=== PATIENT | female | born 1955 | race Caucasian/White ===

== ENCOUNTER 2018-02-23 09:12 | Observation (INO) | payer MEDICARE ==
[~2018-02-23] VITALS: Ht 167.6 cm; Wt 111.0 kg
[2018-02-23] VITALS (10 sets, daily range): BP systolic 141–183; BP diastolic 75–126; PULSE 63–80; RESP 12–20; TEMP 97.9–98.5; O2SAT 95–98
[2018-02-23] MEDS ORDERED: CITA20TA4 PO (09:44)
[2018-02-23] MEDS ORDERED: PANT40TA3 PO (09:44)
[2018-02-23] MEDS ORDERED: TRAZ50TA12 PO (09:44)
[2018-02-23] MEDS ORDERED: TRAM50TA PO (09:44)
[2018-02-23] MEDS ORDERED: SODIUM CHLORIDE 0.9% FLUSH 10 ML FLUSH IVF PRN (09:45)
[2018-02-23] MEDS ORDERED: ASPIRIN 325 MG TAB PO ONE (09:45)
[2018-02-23] MEDS ORDERED: NITROGLYCERIN 0.4 MG SL 25 TABS/BTL SL ONE (09:45)
--- NOTE | 2018-02-23 09:49 | PD ---
HPI Chief Complaint: Chest Pain Time Seen by Provider: 09:37 Travel History International Travel<30 days: No Contact w/Intl Traveler<30days: No Traveled to known affect area: No History of Present Illness HPI Patient presents to the emergency department with chest pain that started this morning at 9 AM. Pain is described as being epigastric and sternal with radiation to her back, left ear, and right jaw. States pain is currently 2 out of 10, intermittent, and 4 minutes in duration, alleviated with rest, no aggravating factors. She is also reporting nausea but no vomiting. States that she has anxiety attacks has similar symptoms but they do not cause pain this bad in his lung. He denies fever, chills, shortness of breath, vomiting, edema, diarrhea, recent travel. PFSH Past Medical History Depression: Yes Cardiovascular Problems: Yes GERD: Yes Insomnia: Yes ?: Not Past Surgical History Gynecologic Surgery: Yes Hysterectomy: Yes Other Surgery: Yes (neck surgery ) Family History Family Myocardial Infarction: Yes Social History Alcohol Use: No Tobacco Use: No Substance Use: No Allergies-Medications (Allergen,Severity, Reaction): Coded Allergies: No Known Allergies (Unverified , 02/23/18) Reported Meds & Prescriptions Reported Meds & Active Scripts Active Reported Trazodone (Trazodone HCl) 50 Mg Tab 75 Mg PO HS Tramadol (Tramadol HCl) 50 Mg Tab 50 Mg PO Q6H PRN Citalopram (Citalopram Hydrobromide) 20 Mg Tab 20 Mg PO DAILY Pantoprazole (Pantoprazole Sodium) 40 Mg Tab 40 Mg PO DAILY Review of Systems Except as stated in HPI: all other systems reviewed are Neg Physical Exam Narrative GENERAL: No acute distress. SKIN: Focused skin assessment warm/dry. HEAD: Atraumatic. Normocephalic. EYES: Pupils equal and round. No scleral icterus. No injection or drainage. ENT: No nasal bleeding or discharge. Mucous membranes pink and moist. NECK: Trachea midline. No JVD. CARDIOVASCULAR: Regular rate and rhythm. No murmur appreciated. RESPIRATORY: No accessory muscle use. Clear to auscultation. Breath sounds equal bilaterally. GASTROINTESTINAL: Abdomen soft, epigastric tender, nondistended. Hepatic and splenic margins not palpable. MUSCULOSKELETAL: No obvious deformities. No clubbing. No cyanosis. No edema. NEUROLOGICAL: Awake and alert. No obvious cranial nerve deficits. Motor grossly within normal limits. Normal speech. PSYCHIATRIC: Appropriate mood and affect; insight and judgment normal. Data Data Last Documented VS Vital Signs Date Time Temp Pulse Resp B/P (MAP) Pulse Ox O2 Delivery O2 Flow Rate FiO2 02/23/18 10:06 76 12 178/75 (109) 95 02/23/18 09:54 Room Air 02/23/18 09:19 97.9 Orders Orders Electrocardiogram (02/23/18 09:44) B-Type Natriuretic Peptide (02/23/18 09:44) Ckmb (Isoenzyme) Profile (02/23/18 09:44) Complete Blood Count With Diff (02/23/18 09:44) Comprehensive Metabolic Panel (02/23/18 09:44) Magnesium (Mg) (02/23/18 09:44) Prothrombin Time / Inr (Pt) (02/23/18 09:44) Act Partial Throm Time (Ptt) (02/23/18 09:44) Troponin I (02/23/18 09:44) Lipase (02/23/18 09:44) Chest, Single Ap (02/23/18 09:44) Ecg Monitoring (02/23/18 09:44) Iv Access Insert/Monitor (02/23/18 09:44) Oximetry (02/23/18 09:44) Aspirin (Aspirin) (02/23/18 09:45) Sodium Chloride 0.9% Flush (Ns Flush) (02/23/18 09:45) Nitroglycerin Sl (Nitrostat Sl) (02/23/18 09:45) CKMB (02/23/18 09:35) CKMB% (02/23/18 09:35) Labs Laboratory Tests Test 02/23/18 09:35 White Blood Count 6.7 TH/MM3 Red Blood Count 4.22 MIL/MM3 Hemoglobin 13.7 GM/DL Hematocrit 41.2 % Mean Corpuscular Volume 97.7 FL Mean Corpuscular Hemoglobin 32.4 PG Mean Corpuscular Hemoglobin Concent 33.1 % Red Cell Distribution Width 13.7 % Platelet Count 234 TH/MM3 Mean Platelet Volume 7.6 FL Neutrophils (%) (Auto) 56.1 % Lymphocytes (%) (Auto) 27.7 % Monocytes (%) (Auto) 12.5 % Eosinophils (%) (Auto) 2.7 % Basophils (%) (Auto) 1.0 % Neutrophils # (Auto) 3.7 TH/MM3 Lymphocytes # (Auto) 1.8 TH/MM3 Monocytes # (Auto) 0.8 TH/MM3 Eosinophils # (Auto) 0.2 TH/MM3 Basophils # (Auto) 0.1 TH/MM3 CBC Comment DIFF FINAL Differential Comment Prothrombin Time 10.1 SEC Prothromb Time International Ratio 1.0 RATIO Activated Partial Thromboplast Time 26.3 SEC Blood Urea Nitrogen 12 MG/DL Creatinine 0.68 MG/DL Random Glucose 92 MG/DL Total Protein 7.1 GM/DL Albumin 3.5 GM/DL Calcium Level 8.7 MG/DL Magnesium Level 2.2 MG/DL Alkaline Phosphatase 68 U/L Aspartate Amino Transf (AST/SGOT) 19 U/L Alanine Aminotransferase (ALT/SGPT) 22 U/L Total Bilirubin 0.3 MG/DL Sodium Level 140 MEQ/L Potassium Level 4.2 MEQ/L Chloride Level 107 MEQ/L Carbon Dioxide Level 24.8 MEQ/L Anion Gap 8 MEQ/L Estimat Glomerular Filtration Rate 88 ML/MIN Total Creatine Kinase 114 U/L Creatine Kinase MB 1.0 NG/ML Troponin I LESS THAN 0.02 NG/ML B-Type Natriuretic Peptide 85 PG/ML Lipase 129 U/L MDM Medical Decision Making Medical Screen Exam Complete: Yes Emergency Medical Condition: Yes Interpretation(s) ECG: Sinus rhythm, rate 76, Q-wave in lead I and aVL, T-wave inversion in lead III and aVF, QTc 400 Labs: Within normal limits Last Impressions Chest X-Ray 02/23/18 0944 Signed Impressions: CONCLUSION: No acute cardiopulmonary findings. Differential Diagnosis ACS, PE, chondritis, pancreatitis, dissection, ulcer disease Narrative Course Patient presents to the emergency department complaining of chest pain. Placed on bus driver/monitor, IV access obtained, and EKG/chest x-ray/labs ordered patient also given aspirin 325 mg p.o. and 1 nitroglycerin 0.4 mg SL. 1131: Patient without chest pain. Pressure 143/75. Patient will be admitted to chest pain center. Diagnosis Primary Impression: Chest pain Qualified Codes: R07.9 - Chest pain, unspecified Admitting Information Admitting Physician Requests: Observation Condition: Stable Penelope Ni MD Feb 23, 2018 09:49
[2018-02-23 10:17] LABS: AUTOMATED NEUTROPHIL # 3.7 TH/MM3 (1.8-7.7); BASOPHIL # 0.1 TH/MM3 (0-0.2); EOSINOPHIL # 0.2 TH/MM3 (0-0.4); EOSINOPHIL % 2.7 % (0.0-4.0); HEMATOCRIT 41.2 % (35.0-46.0); HEMOGLOBIN 13.7 GM/DL (11.6-15.3); LYMPH % 27.7 % (9.0-44.0); LYMPHOCYTE # 1.8 TH/MM3 (1.0-4.8); MEAN CELL VOLUME 97.7 FL (80.0-100.0); MEAN CORPUSCULAR HEMOGLOBIN 32.4 PG (27.0-34.0); MEAN CORPUSCULAR HGB CONC 33.1 % (32.0-36.0); MEAN PLATELET VOLUME 7.6 FL (7.0-11.0); MONO % 12.5 % (0.0-8.0); MONOCYTE # 0.8 TH/MM3 (0-0.9); NEUT % 56.1 % (16.0-70.0); PLATELET COUNT 234 TH/MM3 (150-450); RED BLOOD COUNT 4.22 MIL/MM3 (4.00-5.30); RED CELL DISTRIBUTION WIDTH 13.7 % (11.6-17.2); WHITE BLOOD COUNT 6.7 TH/MM3 (4.0-11.0)
[2018-02-23 10:22] LABS: PROTHROMBIN TIME - PATIENT 10.1 SEC (9.8-11.6)
[2018-02-23 10:29] LABS: ALBUMIN 3.5 GM/DL (3.4-5.0); AST (GOT) 19 U/L (15-37); BICARBONATE 24.8 MEQ/L (21.0-32.0); BLOOD UREA NITROGEN 12 MG/DL (7-18); CALCIUM 8.7 MG/DL (8.5-10.1); CHLORIDE 107 MEQ/L (98-107); CREATININE 0.68 MG/DL (0.50-1.00); GLOMERULAR FILTRATION RATE 88 ML/MIN (>89); GLUCOSE,RANDOM 92 MG/DL (74-106); MAGNESIUM 2.2 MG/DL (1.5-2.5); SODIUM (NA) 140 MEQ/L (136-145)
[2018-02-23 10:30] LABS: ALT (GPT) 22 U/L (10-53)
--- NOTE | 2018-02-23 10:33 | RADRPT ---
EXAM DATE: 02/23/2018 10:26 AM EDT AGE/SEX: 62 years / Female INDICATIONS: Chest pain. CLINICAL DATA: This is the patient's initial encounter. Patient reports that signs and symptoms have been present for 1 day and indicates a pain score of 5/10. MEDICAL/SURGICAL HISTORY: None. None. COMPARISON: No prior exams available for comparison. FINDINGS: A single AP view of the chest demonstrates the lungs to be symmetrically aerated without evidence of mass, infiltrate or effusion. The cardiomediastinal contours are unremarkable. Osseous structures a re intact. CONCLUSION: No acute cardiopulmonary findings. Electronically signed by: Pasquale Kohler MD 02/23/2018 10:32 AM EDT
[2018-02-23 10:34] LABS: ALKALINE PHOSPHATASE 68 U/L (45-117); TOTAL BILIRUBIN ADULT 0.3 MG/DL (0.2-1.0); TOTAL PROTEIN 7.1 GM/DL (6.4-8.2); TROPONIN I LESS THAN 0.02 NG/ML (0.02-0.05)
[2018-02-23] MEDS ORDERED: NITROGLYCERIN 0.4 MG SL 25 TABS/BTL SL PRN (12:30)
[2018-02-23] MEDS ORDERED: ACETAMINOPHEN 500 MG CPLT PO PRN (12:30)
[2018-02-23] MEDS ORDERED: amLODIPine BESYLATE 5 MG TAB PO ONE (13:45)
[2018-02-23 14:01] LABS: TROPONIN I LESS THAN 0.02 NG/ML (0.02-0.05)
--- NOTE | 2018-02-23 14:24 | HHI.HP ---
HPI Primary Care Physician No Primary Care Physician Chief Complaint Chest pain History of Present Illness 62-year-old female with history of GERD and depression presents emergency room for further evaluation chest pain. Onset 9 AM. With onset. Location epigastric area. Characterized as a sharp pain "like a gas bubble." Radiation to right jaw and left ear. Associated symptoms nausea. Denied vomiting, dyspnea, headache, or diaphoresis. Severity severe. No precipitating factors. Relieving factors nitroglycerin and aspirin given in ER. Endorses similar pain in the past, not as a severe and normally last minutes. Currently feels "much better." Reporting epigastric area now feels tender. Reports having heart burn last night therefore she took an additional Protonix. Reports being under a lot of stress, recently moved from [place] 1 month ago. Has not established with a primary care provider. Review of Systems General: No fatigue, weakness, fever, chills, or recent illness. Has been under general state of health. HEENT: No REYES, no vision changes, no nasal congestion or drainage, no dysphasia. CV: As stated above. No current discomfort. RESP: No SOB, cough, wheeze, recent URI, or history of asthma or COPD GI: History of GERD and gastric bypass surgery. No nausea, vomiting, or bowel changes. : No dysuria, urgency, frequency EXT: No lower leg edema MS: No discomfort, injury, or change in ROM NEURO: No change in memory, dizziness, difficulty with balance, LOC, or motor/ sensory deficits PSYCH: History of depression, reports being stable on current medication regimen. No anxiety or suicidal ideation. Current situational stress. SKIN: No rashes, no concerning lesions Past Family Social History Allergies: Coded Allergies: No Known Allergies (Unverified , 02/23/18) Past Medical History GERD, hiatal hernia, depression Past Surgical History Hysterectomy, gastric bypass, bilateral hip replacements, 2 cervical surgery Reported Medications Reported Meds & Active Scripts Active Reported Trazodone (Trazodone HCl) 50 Mg Tab 75 Mg PO HS Tramadol (Tramadol HCl) 50 Mg Tab 50 Mg PO Q6H PRN Citalopram (Citalopram Hydrobromide) 20 Mg Tab 20 Mg PO DAILY Pantoprazole (Pantoprazole Sodium) 40 Mg Tab 40 Mg PO DAILY Active Ordered Medications Current Medications Medications (Trade) Dose Ordered Sig/Fabio Route Start Time Stop Time Status Last Admin (NS Flush) 2 ml UNSCH PRN IVF 02/23/18 09:45 02/23/18 10:04 (NS Flush) 2 ml BID IV FLUSH 02/23/18 21:00 (Tylenol) 500 mg Q4H PRN PO 02/23/18 12:30 (Nitrostat Sl) 0.4 mg Q5M PRN SL 02/23/18 12:30 (Aspirin) 325 mg DAILY PO 02/24/18 09:00 Family History Positive for early onset cardiovascular disease. Father SD at age 44. Brother SD age 47. Social History No known coronary artery disease, diabetes, hypertension, or hyperlipidemia. Lifelong non-smoker. Denies any alcohol or illegal drug use. . Retired. Endorses an active lifestyle, recently increased her exercise. Past cardiac testing No recent stress testing. Endorses past exercise stress testing as well as chemical all reported to be normal. Physical Exam Vital Signs Vital Signs Date Time Temp Pulse Resp B/P (MAP) Pulse Ox O2 Delivery O2 Flow Rate FiO2 02/23/18 13:40 97.9 63 18 141/81 (101) 96 02/23/18 12:41 64 16 174/79 (110) 98 21 02/23/18 10:06 76 12 178/75 (109) 95 02/23/18 09:54 (120) Room Air 02/23/18 09:40 76 14 183/89 (120) 97 Room Air 02/23/18 09:38 80 14 98 Room Air 02/23/18 09:19 97.9 79 20 173/126 (142) 97 Physical Exam GENERAL: Alert WN, WD, NAD, pleasant, morbidly obese, female HEAD: NC, AT CV: RRR, without murmur, rub, or gallop, no JVD, no S3-S4. RESP: Clear lungs throughout bilateral, no crackles, wheeze, rhonchi, symmetrical chest rise, nonlabored, able to speak in full sentences ABD: Soft, NT, ND, no masses, positive bowel tones, obese, epigastric area tender with palpation. BACK: No scoliosis EXT: Pulses +2x4, trace bilateral lower extremity edema MS: Normal tone x4 extremities, no obvious deformities, full range of motion NEURO: CN II through CN XII grossly intact, motor strength 5/5 PSYCH: A+O -3, pleasant affect, appropriate speech, mood, insight and judgment SKIN: Normal turgor, normal texture, no lesions, no rashes, brisk cap refill, even hair distribution Laboratory Laboratory Tests Test 02/23/18 09:35 02/23/18 12:40 White Blood Count 6.7 Red Blood Count 4.22 Hemoglobin 13.7 Hematocrit 41.2 Mean Corpuscular Volume 97.7 Mean Corpuscular Hemoglobin 32.4 Mean Corpuscular Hemoglobin Concent 33.1 Red Cell Distribution Width 13.7 Platelet Count 234 Mean Platelet Volume 7.6 Neutrophils (%) (Auto) 56.1 Lymphocytes (%) (Auto) 27.7 Monocytes (%) (Auto) 12.5 Eosinophils (%) (Auto) 2.7 Basophils (%) (Auto) 1.0 Neutrophils # (Auto) 3.7 Lymphocytes # (Auto) 1.8 Monocytes # (Auto) 0.8 Eosinophils # (Auto) 0.2 Basophils # (Auto) 0.1 CBC Comment DIFF FINAL Differential Comment Prothrombin Time 10.1 Prothromb Time International Ratio 1.0 Activated Partial Thromboplast Time 26.3 Blood Urea Nitrogen 12 Creatinine 0.68 Random Glucose 92 Total Protein 7.1 Albumin 3.5 Calcium Level 8.7 Magnesium Level 2.2 Alkaline Phosphatase 68 Aspartate Amino Transf (AST/SGOT) 19 Alanine Aminotransferase (ALT/SGPT) 22 Total Bilirubin 0.3 Sodium Level 140 Potassium Level 4.2 Chloride Level 107 Carbon Dioxide Level 24.8 Anion Gap 8 Estimat Glomerular Filtration Rate 88 Total Creatine Kinase 114 104 Creatine Kinase MB 1.0 Troponin I LESS THAN 0.02 LESS THAN 0.02 B-Type Natriuretic Peptide 85 Lipase 129 Result Diagram: 02/23/1893402/23/18934 Imaging Last 48 hours Impressions Chest X-Ray 02/23/18 09 Signed Impressions: CONCLUSION: No acute cardiopulmonary findings. Course EKG Normal sinus rhythm, no ST changes, T-wave inversions in lead III and aVF Caprini VTE Risk Assessment Caprini VTE Risk Assessment: Mod/High Risk (score >= 2) Caprini Risk Assessment Model Point Value = 1 Point Value = 2 Point Value = 3 Point Value = 5 Age 41-60 Minor surgery BMI > 25 kg/m2 Swollen legs Varicose veins or History of unexplained or recurrent spontaneous Oral contraceptives or hormone replacement Sepsis (< 1 month) Serious lung disease, including pneumonia (< 1 month) Abnormal pulmonary function Acute myocardial infarction Congestive heart failure (< 1 month) History of inflammatory bowel disease Medical patient at bed rest Age 61-74 Arthroscopic surgery Major open surgery (> 45 min) Laparoscopic surgery (> 45 min) Malignancy Confined to bed (> 72 hours) Immobilizing plaster cast Central venous access Age >= 75 History of VTE Family history of VTE Factor V Leiden Prothrombin [id number] Lupus anticoagulant Anticardiolipin antibodies Elevated serum homocysteine Heparin-induced thrombocytopenia Other congenital or acquired thrombophilia Stroke (< 1 month) Elective arthroplasty Hip, pelvis, or leg fracture Acute spinal cord injury (< 1 month) Prophylaxis Regimen Total Risk Factor Score Risk Level Prophylaxis Regimen 0-1 Low Early ambulation 2 Moderate Order ONE of the following: *Sequential Compression Device (SCD) *Heparin 5000 units SQ BID 3-4 Higher Order ONE of the following medications: *Heparin 5000 units SQ TID *Enoxaparin/Lovenox 40 mg SQ daily (WT < 150 kg, CrCl > 30 mL/min) *Enoxaparin/Lovenox 30 mg SQ daily (WT < 150 kg, CrCl > 10-29 mL/min) *Enoxaparin/Lovenox 30 mg SQ BID (WT < 150 kg, CrCl > 30 mL/min) AND/OR *Sequential Compression Device (SCD) 5 or more Highest Order ONE of the following medications: *Heparin 5000 units SQ TID (Preferred with Epidurals) *Enoxaparin/Lovenox 40 mg SQ daily (WT < 150 kg, CrCl > 30 mL/min) *Enoxaparin/Lovenox 30 mg SQ daily (WT < 150 kg, CrCl > 10-29 mL/min) *Enoxaparin/Lovenox 30 mg SQ BID (WT < 150 kg, CrCl > 30 mL/min) AND *Sequential Compression Device (SCD) Assessment and Plan Assessment and Plan #1 Atypical chest pain-no chest pain center. Rule out ACS with 3 sets of EKGs and cardiac enzymes. Will be seen and evaluated by Dr. Bryce Doe. Discussed possible exercise stress testing later this afternoon after evaluation by manager agricultural. Symptoms suspicious of GI etiology. #2 History of GERD-continue Protonix, discussed establishing with a local GI as she has not seen a GI specialist in many years. #3 History of depression-continue citalopram Ann-Marie Guillaume Feb 23, 2018 14:24
--- NOTE | 2018-02-23 15:26 | EKG ---
Date Performed: 02/23/2018 Time Performed: 09:28:01 PTAGE: 62 years EKG: Sinus rhythm WITH OCCASIONAL SUPRAVENTRICULAR PREMATURE COMPLEXES MINIMAL VOLTAGE CRITERIA FOR LVH, CONSIDER NORM AL VARIANT BORDERLINE ECG NO PREVIOUS TRACING DOCTOR: Bryce Doe Interpretating Date/Time 02/23/2018 15:24:41
[2018-02-23 16:00] LABS: TROPONIN I LESS THAN 0.02 NG/ML (0.02-0.05)
[2018-02-23] MEDS: SODIUM CHLORIDE 0.9% FLUSH 10 ML FLUSH IV FLUSH SCH (21:40)
[2018-02-24] VITALS: PULSE 66
[2018-02-24 01:01] VITALS: BP 121/64; PULSE 69; RESP 17; TEMP 97.7; O2SAT 95
[2018-02-24 04:00] VITALS: PULSE 65
[2018-02-24 05:38] VITALS: BP 126/76; PULSE 69; RESP 16; TEMP 97.6; O2SAT 95
[2018-02-24] MEDS: SODIUM CHLORIDE 0.9% FLUSH 10 ML FLUSH IV FLUSH SCH (08:03)
[2018-02-24 08:42] VITALS: BP 140/79; PULSE 70; RESP 18; TEMP 97.6; O2SAT 97
[2018-02-24] MEDS ORDERED: PANTOPRAZOLE SOD 40 MG DELAYED RELEASE TAB PO SCH (09:00)
[2018-02-24] MEDS ORDERED: ASPIRIN 325 MG TAB PO SCH (09:00)
[2018-02-24] MEDS ORDERED: CITALOPRAM HYDROBROMIDE 20 MG TAB PO SCH (09:00)
--- NOTE | 2018-02-24 09:16 | EKG ---
Date Performed: 02/23/2018 Time Performed: 12:37:44 PTAGE: 62 years EKG: Sinus rhythm NORMAL ECG Since PREVIOUS TRACING , no significant change noted DOCTOR: Nohemi Wong Interpretating Date/Time 02/24/2018 09:15:52
[2018-02-24] MEDS ORDERED: REGADENOSON INJ 0.4 MG/5 ML SYR ONE (09:28)
--- NOTE | 2018-02-24 10:53 | RADRPT ---
EXAM DATE: 02/24/2018 10:43 AM EDT AGE/SEX: 62 years / Female INDICATIONS:Angina. . Substernal chest pain radiating to right jaw and left ear with nausea. CLINICAL DATA: This is the patient's initial encounter. Patient reports that signs and symptoms have been present for 1 day and indicates a pain score of 6/10. MEDICAL/SURGICAL HISTORY: Gastroesophageal reflux disease. Hysterectomy. Fusion, cervical. Ga stric bypass. Bilateral hip replacement. COMPARISON: No prior exams available for comparison. DOSE: 11 mCi Tc 99m Myoview at rest 35 mCi [id number] at stress 0.4 mg Lexiscan STRESS SYMPTOMS: Dyspnea and lightheaded. EJECTION FRACTION: 67 % TECHNIQUE: The patient underwent pharmacologic stress with infusion of prescribed dose. Continuous ECG tracing was monitored during stress. Gated SPECT imaging was performed after stress and conventi onal SPECT imaging was performed at rest. The examination was performed on a SPECT/CT scanner, both attenuation and non-corrected datasets were reviewed. FINDINGS: Distribution: The maximum perfused segment at stress is in the lateral wall. Perfusion Study: The pattern of perfusion at stress is within normal limits. Gated Study: There are intact wall motion and wall thickening without hypokinetic or dyskinetic segm ents. The ejection fraction is calculated at 67%. RISK CATEGORY: Low (<1% Annual Motality Rate) CONCLUSION: 1. Unremarkable myocardial perfusion exam. Electronically signed by: Sanya Guerrero MD 02/24/2018 10:52 AM EDT
--- NOTE | 2018-02-24 11:03 | HHI.DCPOC ---
Discharge Care Plan Diagnosis: (1) Atypical chest pain (2) GERD (gastroesophageal reflux disease) Goals to Promote Your Health * To prevent worsening of your condition and complications * To maintain your health at the optimal level Directions to Meet Your Goals Take your medications as prescribed Follow your dietary instruction Follow activity as directed Keep your appointments as scheduled Take your immunizations and boosters as scheduled If your symptoms worsen call your PCP, if no PCP go to Urgent Care Center or Emergency Room Smoking is Dangerous to Your Health. Avoid second hand smoke Call the 24-hour hour crisis hotline for domestic abuse at Ann-Marie Guillaume Feb 24, 2018 11:03
--- NOTE | 2018-02-24 11:13 | HHI.DS ---
Discharge Summary Admission Date Feb 23, 2018 at 11:33 Discharge Date: Feb 24, 2018 Admitting Diagnosis chest pain Brief History 62-year-old female with history of GERD and depression presents emergency room for further evaluation epigastric pain. Admitted to chest pain center. Ruled out with 3 sets of EKGs and cardiac enzymes. Exercise stress test completed revealing horizontal ST segments therefore she was monitored overnight completed Lexiscan in a.m. Lexiscan unremarkable. Discharge home with follow- up with her primary care provider. Reported long-standing GERD, hiatal hernia, and gastric bypass surgery and when living in [place] she followed with a gift consultant. In fact she was taking Protonix 40 mg twice daily although due to insurance restrictions has only been taking Protonix 40 mg daily. Encouraged her to establish with a local primary care provider and GI specialist for further evaluation. CBC/BMP: 02/23/18 0935 02/23/18 0935 Significant Findings Laboratory Tests Test 02/23/18 09:35 02/23/18 12:40 02/23/18 15:29 Monocytes (%) (Auto) 12.5 % (0.0-8.0) Estimat Glomerular Filtration Rate 88 ML/MIN (>89) Troponin I LESS THAN 0.02 NG/ML LESS THAN 0.02 NG/ML LESS THAN 0.02 NG/ML Pt Condition on Discharge: Good Discharge Disposition: Discharge Home Discharge Instructions DIET: Follow Instructions for: Heart Healthy Diet Activities you can perform: Regular-No Restrictions Ann-Marie Guillaume Feb 24, 2018 11:13
--- NOTE | 2018-02-24 15:27 | TR ---
Date Performed: 02/24/2018 Time Performed: 09:34:18 DOCTOR: Nohemi Wong DRUG LIST: CLINICAL HISTORY: REASON FOR TEST: CHEST PAIN REASON FOR ENDING: OBSERVATION: CONCLUSION: Lexiscan stress test was performed under standard four minute protocol. Radionuclid e was injected one minute prior to ending the test. No electrocardiographic abormalities were present to suggest ischemia. Nuclear imaging and interpretation are pending. COMMENTS:
== END 2018-02-24 12:24 | disposition home or self-care (01) ==
LOC: NEPE 09:12 → NEDA 11:33 → NEPHCDU 12:52
PROVIDERS: ADMIT Internal Medicine Cardiovascular Disease; ATTEND Internal Medicine Cardiovascular Disease
DX: R07.9 Chest pain, unspecified (principal); R11.0 Nausea; F41.1 Generalized anxiety disorder; F32.9 Major depressive disorder, single episode, unspecified; K21.9 Gastro-esophageal reflux disease without esophagitis; G47.00 Insomnia, unspecified; Z90.710 Acquired absence of both cervix and uterus; Z79.899 Other long term (current) drug therapy; Z98.84 Bariatric surgery status; Z82.49 Family history of ischemic heart disease and other diseases of the circulatory system; E66.01 Morbid (severe) obesity due to excess calories; R60.0 Localized edema; R94.31 Abnormal electrocardiogram [ECG] [EKG]; R06.00 Dyspnea, unspecified
CPT/HCPCS: 71045; 78452; 80053; 82550; 82552; 83690; 83735; 83880; 84484; 85025; 85610; 85730; 93005; 93017; 99285; A9502; G0378; J2785